=== PATIENT | female | born 1985 | race Caucasian/White ===

== ENCOUNTER 2025-10-02 10:40 | Observation (INO) | payer BC, OTHER ==
--- NOTE | 2025-10-02 12:17 | DVH ---
BIOPHYSICAL PROFILE HISTORY: Cammy, repeat , well being. TECHNIQUE: Multiple transabdominal real-time grayscale sonographic images through the gravid uterus of the fetus with duplex Doppler color flow and M-mode spectral analysis. FINDINGS: BIOPHYSICAL PROFILE: breathing score: 2 movement score: 2 tone score: 2 Quantitative TERI score: 2 (TERI: 19.2 cm.) Total score: 8. Grade 2 anterior placenta. IMPRESSION: 1. Biophysical profile score: 8/
--- NOTE | 2025-10-02 13:18 | DVHDS2 ---
Physician Discharge Progress N Final Diagnosis: 38wks with previous csx2 hypothyroid Operations or Procedures: Operations or Procedures nst reactive reviwed,sono Other Interventions Other Interventions refuses to have cs at 39wks which is tmw wants to do thx giving at home and wants to have cs on wednesday.pt understands possib of rupture uterus ,inc morb/mort Condition on Discharge: Good Disposition: Home Discharge Instructions: Diet: Regular Activity: No Restrictions, As Tolerated Medications: na Follow Up Care: Specialist: 3d Discharge Statement: "Patient was advised to return to the ER or call 911 if any headaches, dizziness, shortness of breath, chest pain, abdominal pain, bleeding, fevers, or worsening of medical condition. Patient was counseled about treatment plan, medications, possible side effects, patientverbalized understanding. All questions were answered to the best of my ability. This discharge took greater then 30 minutes in planning, reviewing docume ntation, counseling the patient, and discussing with other team members." Visit Coding OBGYN Date of Service: Oct 02, 2025 Billing Provider: ZHEN TRIPP DO CABLE TELEVISION INSTALLER Common Visit Codes: [id number] OBS CARE (HIGH) CABLE TELEVISION INSTALLER Procedure Codes: 01067-78- NON-STRESS TEST ZHEN TRIPP DO Oct 02, 2025 13:18
--- NOTE | 2025-10-04 22:05 | DVHHP ---
CHIEF COMPLAINT: Desires repeat section with bilateral tubal ligation. HISTORY OF PRESENT ILLNESS: The patient is a 5, para 2 female, with EDC 10/10/2025, estimated gestational age of 39 weeks, admitted for repeat section. The patient wishes to have bilateral tubal ligation. Risks, complications, failure of a use of [place] clip discussed with patient. Options reviewed. All questions answered. The patient fully understood. She wishes to proceed with the planned procedure. PAST MEDICAL HISTORY: Hypothyroidism. PAST SURGICAL HISTORY: Two sections. SOCIAL HISTORY: None. ALLERGIES: No known drug allergies. REVIEW OF SYSTEMS: Consistent with HPI. PHYSICAL EXAMINATION: VITAL SIGNS: Stable, afebrile. HEENT: Within normal limits. CARDIOVASCULAR: Regular rate and rhythm. LUNGS: Clear to auscultation. BREASTS: Symmetrical, no masses. ABDOMEN: Gravid, positive heart, pelvic defect. EXTREMITIES: No clubbing, cyanosis or edema. IMPRESSION: * Intrauterine at term with previous section x 2. * Desires repeat section. * AMA. * Hypothyroidism. * Desires bilateral tubal ligation. PLAN: Repeat section with bilateral tubal ligation. Informed consent obtained. Risks and complications of surgery including infection, bleeding, hematoma formation, injury to bowel, bladder, surrounding organs, possibility of DVT, pulmonary embolism, risks of anesthesia discussed with patient. Options reviewed. All questions answered. The patient fully understands. She wishes to proceed with planned procedure. DO JARETT Tang TID: [id number] RECEIPT: [id number]
[2025-10-05] MEDS ORDERED: IBUP-1456 PO (07:03)
[2025-10-05] MEDS ORDERED: HYDR-4072 PO (07:03)
[2025-10-05] MEDS ORDERED: DOCU-94 PO (07:03)
== END 2025-10-02 12:04 | disposition home or self-care (01) ==
LOC: UNDOADMOB 10:40 → LDRP 10:40
PROVIDERS: ADMIT Obstetrics & Gynecology; ATTEND Obstetrics & Gynecology
DX: O99.283 Endocrine, nutritional and metabolic diseases complicating pregnancy, third trimester (principal); E03.9 Hypothyroidism, unspecified; Z3A.38 38 weeks gestation of pregnancy; Z98.890 Other specified postprocedural states
CPT/HCPCS: 76818; 81002; 94762; G0378; 59025; 76819